=== PATIENT | female | born 1955 ===

== ENCOUNTER → 2018-06-24 14:56 | Outpatient (REF) | payer BC, SELFPAY | LOC: LAB 14:56 | PROVIDERS: Visit Provider Physician Assistant | DX: L23.9 Allergic contact dermatitis, unspecified cause (principal); L21.8 Other seborrheic dermatitis; L01.01 Non-bullous impetigo; L30.8 Other specified dermatitis | CPT/HCPCS: 87070; 87077; 87147; 87205 ==